=== PATIENT | male | born 1970 | race African-American/Black ===

== ENCOUNTER 2019-01-15 12:56 | Emergency (ER) | payer OTHER ==
[2019-01-15 13:16] VITALS: PULSE 78; BMI 27.1
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
[2019-01-15] MEDS ORDERED: ACETAMINOPHEN 500 MG TABLET (FP) PO ONE (14:32)
[2019-01-15] MEDS ORDERED: METHOCARBAMOL 500 MG TABLET PO ONE (14:32)
[2019-01-15 17:19] VITALS: BP 135/96; TEMP 97.6
== END 2019-01-15 18:19 | disposition home or self-care (01) ==
LOC: SUPCPDRO 12:56 → JER 12:56
DX: V43.52XA Car driver injured in collision with other type car in traffic accident, initial encounter (principal); Y93.89 Activity, other specified; Y92.410 Unspecified street and highway as the place of occurrence of the external cause; M54.9 Dorsalgia, unspecified; M54.2 Cervicalgia
CPT/HCPCS: 70450-TC; 72125-TC; 99283-25